=== PATIENT | male | born 1990 | race Caucasian/White ===

== ENCOUNTER 2022-09-05 19:00 | Inpatient (IN) | payer SELFPAY ==
[2022-09-05 18:53] VITALS: BMI 21.3
--- NOTE | 2022-09-05 18:55 | HP.PCM.HOS_ITS ---
HPI - General General Date of Admission: 09/05/22 Date of Service: 09/05/22 Chief Complaint: ? Cellulitis HPI Narrative The patient is a 31 y/o M w/ PMHx: Tobacco use, Cannabis use, Hyperthyroidism untreated who presents to the [facility] as a direct transfer from [facility] on 09/05/22 with history of several months of intermittent episodes of redness and mild edema to the R foot/ankle in addition to onset of tenderness and redness that blanches to touch on the left upper anterior thigh and groin regimen with no specific injury or wound, noted to ofte leni and then return, most recently recurred ~ 2-3 weeks prior reporting at least over this course of time it has been ongoing 3 rounds of abx therapy but in the last 24 hours he noted onset of fever and chills but no nausea, emesis, diarrhea. He does admit to some mild abdominal cramping intermittently but no severe pain, rebound or guarding. He does report having been bit on the left buttock region by a tick ~ 3-4 months prior or perhaps a bit longer he notes and ended up having a concurrent cellulitis and possible abscess from description and was treated with unclear abx therapy but unclear course but did not have any lyme disease testing or assessment per his report. He does have joint discomfort but not severe. He denies having ever noted the bull's-eye rash pattern on the buttock region but he could not see the region himself he notes. He of note states he did take m ethimazole prior and did have difficulty with the medication, noting very sluggish, lethargic side effects and did eventually have the dose decreased but is willing to start again with a low dose and assess if he has the same reaction. Work-up at the outside facility included heart rate 110, BP 139/89, under percent oxygenation on room air, CBC with WBC 14.0, hemoglobin 16, platelet 342 with unclear shift, TSH less than 0.1, free T42.2, chest x-ray with no acute cardiopulmonary findings, CRP 5, BMP with sodium 140, potassium 4, BUN/creatinine 7/0.7, glucose 81 and also of note because patient had mild abdominal cramping they did obtain a CT abdomen and pelvis which demonstrated some mild thickness of the small bowel nonspecific as well as mild mesenteric edema. [facility] Medical History Cannabis use disorder Hyperthyroidism Tobacco use Home Medications NK 09/05/22 [History Last Taken Unknown] Allergy/AdvReac Type Severity Reaction Status Date / Time No Known Allergies Allergy Verified 09/05/22 19:06 Family History (Updated 09/05/22 @ 19:[address] Emmy Pryor MD) Mother Diabetes Hypertension Hyperlipidemia Family History other other (Patient denies any marked paternal family history including HD, DM, CA but does not know his father well.) Surgical History (Updated 09/05/22 @ 19:[address] Emmy Pryor MD) History of mandibular surgery Social History (Updated 09/05/22 @ 19:[address] Emmy Pryor MD) household members: family Smoking Status: Current every day smoker tobacco type: cigarettes Smoking packs per day: 2 Smoking cigarettes per day: 40.0 alcohol intake: never substance use type: marijuana ROS ROS Narrative Admission Review of Systems: CONSTITUTIONAL: No weight loss, + fever, chills, weakness or fatigue. HEENT: Eyes: No visual loss, blurred vision, double vision or yellow sclerae. Ears, Nose, Throat: No hearing loss, sneezing, congestion, runny nose or sore throat. SKIN: + Intermittent regions of erythema currently to the right medial ankle and left upper thigh and groin region. CARDIOVASCULAR: No chest pain, chest pressure or chest discomfort, palpitations, edema, orthopnea, syncopal events. RESPIRATORY: No shortness of breath, cough or sputum, wheezing, hemoptysis. GASTROINTESTINAL: + Mild abdominal cramping. No anorexia, nausea, vomiting or diarrhea, melena, BRBPR. GENITOURINARY: No dysuria, frequency, urgency or retention. NEUROLOGICAL: No headache, dizziness, syncope, paralysis, ataxia, numbness or tingling in the extremities, focal weakness, change in bowel or bladder control, seizure. MUSCULOSKELETAL: + muscle, back pain, joint pain or stiffness. HEMATOLOGIC: No anemia, bleeding or bruising. LYMPHATICS: No enlarged nodes. No history of splenectomy. PSYCHIATRIC: No history of depression or anxiety. ENDOCRINOLOGIC: + reports of sweating, cold or heat intolerance. No polyuria or polydipsia. ALLERGIES: No history of asthma, hives, eczema or rhinitis. Physical Exam Narrative Physical Examination: General: Awake, alert, oriented x 3 and cooperative, seated upright in medical surgical bed in no apparent distress. Skin: Normal color, normal turgor, no icterus, no cyanosis except for noted very minimal redness which is blanching to the right medial ankle and very minimal edema associated as well as redness which is also blanching and stereotactic to the left upper thigh and groin region with no evidence of any abrasions or cuts. HEENT: AT/NC, EOMI, PERRLA, MMM, no carotid bruits or JVD noted. Lungs: CTA bilaterally, moderate effort, mild decrease BL bases, no rales, ronchi or wheezing. Heart: Mildly tachycardic with regular rhythm; no gallop, rub audible. Abdomen: Soft, NTTP, ND, mildly hyperactive BS, no HSM. Extremities: No cyanosis, no clubbing, very minimal ankle nonpitting edema. Neurological: Patient awake, alert, oriented as noted, cognitive function intact; pupils equally reactive to light and accommodation, cranial nerves II- XII grossly normal, moving all 4 extremities, no focal deficits, strength mildly global decreased. Psychiatric: Affect appears fatigued otherwise normal, no acute evidence of depressive or anxiety feelings. Assessment & Plan Assessment/Plan (1) Hyperthyroidism: PLAN: Plan The patient is a 31 y/o M w/ PMHx: Tobacco use, Cannabis use, Hyperthyroidism untreated who presents to the [facility] as a direct transfer from [facility] on 09/05/22 with history of several months of intermittent episodes of redness and mild edema to the R foot/ankle in addition to onset of tenderness and redness that blanches to touch on the left upper anterior thigh and groin regimen with no specific injury or wound, noted to ofte leni and then return, most recently recurred ~ 2-3 weeks prior reporting at least over this course of time it has been ongoing 3 rounds of abx therapy but in the last 24 hours he noted onset of fever and chills but no nausea, emesis, diarrhea. He does admit to some mild abdominal cramping intermittently but no severe pain, rebound or guarding. He does report having been bit on the left buttock region by a tick ~ 3-4 months prior or perhaps a bit longer he notes and ended up having a concurrent cellulitis and possible abscess from description and was treated with unclear abx therapy but unclear course but did not have any lyme disease testing or assessment per his report. #1. Recurrent blanching red rashes/Possible Erythema migrans, currently on R inner ankle and L upper thigh/groin region, suspect Lyme disease as opposed to Recurrent Acute Cellulitis which would have failed outpatient abx therapies: Will admit to [facility], will obtain lyme testing with WB, will for now place on IV rocephin as this would treat a bacterial etiology and lyme also initially but once appropriate would be more cost effective and beneficial to transition the patient to oral doxycycline 100 mg twice daily, CRP was obtained at outside facility but will also add ESR and procalcitonin, trend CBC, monitor redness to these regions and low threshold to involve infectious disease pending results. Pending results if Lyme disease is not evident and certainly low threshold to duplex his lower extremities to assure no DVT involvement if truly a cellulitic presentation. #2. Hypothyroidism, untreated: Patient with very mild tachycardia but unfortunately has been off treatments because of lack of insurance for many years, ED as well as Dr. Vu discussed patient care with Dr. Newton who will plan to see the patient on 09/07/2022 and at this time requested that he be initiated on methimazole 10 mg once daily but from discussions this may end up needing to be decreased or an alternate regimen pursued as it was very difficult in the past for him to tolerate this medication. At outside facility TSH less than 0.1 and free T4 2.2. #3. Tobacco Abuse: Encouraged cessation, inpatient consultation per RT, NR if desired. #4. Cannabis chronic usage: Patient normally uses smoked cannabis daily, UDS has been requested. #5. DVT prophylaxis: We will maintain on therapeutic Lovenox however if consistent with Lyme disease will de-escalate. If Lyme disease ruled out then certainly as noted duplex could be obtained and may discontinue Lovenox if appropriate following that study. Admission Evaluation Time spent evaluating chart, patient history, patient evaluation, care planning and discussion with specialists: 60 minutes. Charges/Coding Visit Charges Inpatient E&M: 34318 Init Hosp L2
[2022-09-05 19:53] VITALS: BP 138/86; PULSE 106; RESP 18; TEMP 36.8; O2SAT 100
[2022-09-05 19:58] VITALS: PULSE 106
[2022-09-05] MEDS: Acetaminophen 325 MG Tablet 650 MG PO (20:16)
[2022-09-05] MEDS: 0.9% Normal Saline 1,000 ML 100 ML IV (20:17)
[2022-09-05] MEDS: methIMAzole 10 MG TABLET PO (20:18)
[2022-09-05] MEDS: Enoxaparin 80 MG/0.8 ML Syringe 70 MG SC (20:18)
[2022-09-05 20:29] LABS: Erythrocyte Sedimentation Rate 16 mm/hr (0-20)
[2022-09-05 20:53] LABS: Procalcitonin < 0.01 ng/mL (0.00-0.09)
[2022-09-05 22:03] LABS: Vista UDS pH Range 7
[2022-09-05 22:05] LABS: Amphetamine Urine VISTA NEGATIVE (<1000 ng/mL); Barbiturate Urine VISTA NEGATIVE (< 200 ng/mL); Benzodiazepine Urine VISTA NEGATIVE (< 200 ng/mL); Cocaine Urine VISTA NEGATIVE (< 300 ng/mL); Ecstacy Urine VISTA NEGATIVE (< 500 ng/mL); Methadone Urine VISTA NEGATIVE (< 300 ng/mL); PCP Urine VISTA NEGATIVE (< 25 ng/mL); THC Urine VISTA POSITIVE (< 50 ng/mL)
[2022-09-05] MEDS: Ceftriaxone 1 GM/50 ML BAG IV (22:46)
--- NOTE | 2022-09-05 22:53 | NURSING ---
Pt was prescribed IV vancomycin. After around 500 Ml of infusion pt complained of his skin on the back of his neck and head feeling hot and itching. After I stopped the infusion he said it was subsiding.
[2022-09-05] MEDS: DiphenhydrAMINE 50 MG/ML Syringe 25 MG IV (23:34)
[2022-09-06] VITALS (7 sets, daily range): BP systolic 108–120; BP diastolic 62–88; PULSE 74–92; RESP 18; TEMP 36.6–36.8; O2SAT 95–100; BMI 21.3
[2022-09-06 06:08] LABS: Absolute Lymphocyte Count 2.44 X10^3/uL (0.83-4.51); Absolute Neutrophil Count 8.9 X10^3/uL (2.0-7.7); Basophil# 0.04 X10^3/uL; Basophil% 0.3 % (0-1); Eosinophil# 0.38 X10^3/uL; Hematocrit 44.7 % (40-54); Lymphocyte # 2.44 X10^3/ul (0.83-4.51); Lymphocyte % 19.6 % (19-41); Mean Corp Hgb Conc 33.6 g/dL (32-36); Mean Corpuscular Hgb 30.1 pg (27.0-32.0); Mean Corpuscular Volume 89.6 fL (80-94); Mean Platelet Vol. 10.1 fl (6.2-12.0); Monocyte# 0.65 X10^3/uL; Monocyte% 5.2 % (0-10); NRBC Flagged by Analyzer 0 % (0-5); Neutrophil # 8.86 X10^3/uL (2.7-7.7); Neutrophil % 71.1 % (47-70); Platelet Count 296 K/mm3 (150-450); RBC Distribution Width CV 12.1 % (11.6-14.6); RBC Distribution Width SD 39.7 fl (35.1-43.9); Red Blood Count 4.99 M/mm3 (4.6-6.2); White Blood Count 12.5 K/mm3 (4.4-11.0)
[2022-09-06 06:47] LABS: ALB/GLOB Ratio 0.7 RATIO (0.9-2.4); AST(SGOT) 13 U/L (15-37); Alanine Aminotransfer ALT/SGPT 15 U/L (16-61); Albumin, Serum 2.5 g/dL (3.2-5.0); Alkaline Phosphatase 137 U/L (45-117); Anion Gap 3 (5-15); BUN 6 mg/dL (7-18); BUN/Creat Ratio 8.6 RATIO (10-20); Calcium,Total 8.4 mg/dL (8.5-10.1); Chloride 110 mmol/L (98-107); EST Glomerular Filtration Rate 142 mL/min (>60); Est Glom Filt Rate - Afr Amer 172 mL/min (>60); Estimated Creatinine Clearance 157.25 ml/min; Globulin 3.6 g/dL (2.2-4.2); Glucose 88 mg/dL (74-106); Protein, Total 6.1 g/dL (6.4-8.2); Sodium Level 140 mmol/L (136-145)
--- NOTE | 2022-09-06 07:35 | PCM.PN.HOSP ---
Reason for Visit Reason for Visit: Diagnoses Thyrotoxicosis, unspecified without thyrotoxic crisis or storm (09/05/22) Subjective Subjective Follow-up for rash probably cellulitis and hypothyroidism Objective Data Objective Data Vital Signs: Vital Signs Temp Pulse Resp BP Pulse Ox O2 Del Method 98.2 F 92 18 119/62 99 Room Air 09/06/22 02:45 09/06/22 02:45 09/06/22 02:45 09/06/22 02:45 09/06/22 02:45 09/06/22 02:45 Oxygen Delivery Method Room Air Weight: 157 lb 6.561 oz Body Mass Index (BMI) 21.3 Intake & Output: Intake and Output for Last 24 Hours 09/04/22 09/05/22 09/06/22 23:59 23:59 23:59 Intake Total 585 / 585 700 / 700 Output Total 300 / 300 Balance 585 / 585 400 / 400 Lab / Micro Data 09/06/22 05:15 09/06/22 05:15 Labs: Laboratory Results - last 24 hr 09/05/22 19:55: ESR 16, C-React Prot Ext Range 42.90 H, Procalcitonin < 0.01 09/05/22 21:25: Urine Opiates Screen NEGATIVE, Urine Methadone Screen NEGATIVE, Ur Barbiturates Screen NEGATIVE, Ur Phencyclidine Scrn NEGATIVE, Ur Amphetamines Screen NEGATIVE, MDMA (Ecstasy) Screen NEGATIVE, U Benzodiazepines Scrn NEGATIVE, Urine Cocaine Screen NEGATIVE, U Cannabinoids Screen POSITIVE H, Ur Drug Screen Comment 09/06/22 05:15: WBC 12.5 H, RBC 4.99, Hgb 15.0, Hct 44.7, MCV 89.6, MCH 30.1, MCHC 33.6, RDW Std Deviation 39.7, RDW Coeff of [place] 12.1, Plt Count 296, MPV 10.1, Immature Gran % (Auto) 0.800, Neut % (Auto) 71.1 H, Lymph % (Auto) 19.6, [place] % (Auto) 5.2, Eos % (Auto) 3.0, Baso % (Auto) 0.3, Absolute Neuts (auto) 8.9 H, Absolute Lymphs (auto) 2.44, Nucleated RBC % 0, Sodium 140, Potassium 4.0, Chloride 110 H, Carbon Dioxide 27.0, Anion Gap 3 L, BUN 6 L, Creatinine 0.70, Estim Creat Clear Calc 157.25, Est GFR (MDRD) Af Amer 172, Est GFR (MDRD) Non-Af 142, BUN/Creatinine Ratio 8.6 L, Glucose 88, Calcium 8.4 L, Total Bilirubin 1.30 H, AST 13 L, ALT 15 L, Alkaline Phosphatase 137 H, Total Protein 6.1 L, Albumin 2.5 L, Globulin 3.6, Albumin/Globulin Ratio 0.7 L Physical Exam Narrative Seen and examined. History taken from the patient, patient's mother and grandmother near the bedside. Patient had rash after tick was found attached to his left buttock about 3 months ago. That rash was erythematous and grew bigger involve the buttock area in both groins. This resolved. About 3 weeks ago, patient had rash over left anterolateral thigh which is started as a small spot and grew bigger and bigger. At the same time he also had rash on the right foot and leg and has right knee swelling. He is admitted from pulmonary in ER with left thigh rash and right leg rash but that rash has resolved after 1 day of IV antibiotic ceftriaxone. Rash blanches on touch. No fever. Patient had 3 rounds of antibiotic in the last 3 weeks. Patient also had some mild nausea and abdominal crampings and CT abdomen was done there which shows mild small bowel wall thickening/edema Patient also has hypothyroidism diagnosed about 2 years but not taking medication. Denies gritty/sulema sensation or dry eyes. Wears corrective glasses since age of 17. As per mother patient did not had symptoms of hyperthyroidism as acute like hyperactive restlessness/fidgety Currently, patient does not have GI symptoms. Physical exam General: Alert, Oriented x3, Cooperative HEENT: Wears glasses. Atraumatic, PERRLA, EOMI, Normocephalic Oral: No Gingival or Mucosal Lesions/ Ulcerations Neck: Bilateral thyroid lobes enlarged/thyromegaly. No palpable nodules. Lower border palpable just above the suprasternal notch on swallowing. Supple, No JVD, Negative Carotid Bruits Lungs: Air entry diminished in bilateral lung bases. No crepitation/rhonchi Cardiovascular: Regular rate, Regular Rhythm, Normal S1, Normal S2, No murmurs Abdomen: Bowel Sounds Present, Soft, Non Tender, Non-Distended : No renal angle tenderness. No suprapubic tenderness. Extremities: No edema, Capillary Refill Less than 3 Seconds Skin: Erythematous rash over left thigh and right foot and ankle has resolved. A small erythematous nodule persist over left thigh from where rash started. Bilateral multiple inguinal lymphadenopathy left worse than right. Musculoskeletal: No Tenderness to Palpation of Joints or Extremities Neurological: Cranial nerves II-XII grossly intact, DTR 2+/4 and Symmetrical, Neuro grossly intact Psych/Mental Status: Normal Affect, Appropriate. Assessment & Plan Assessment/Plan (1) Hyperthyroidism: PLAN: Plan The patient is a 31 y/o M is admitted with intermittent fleeting rash currently for last 3 weeks but had tick bite/attachment and erythematous rash on left buttock cheek and groin area about 3 months ago. Patient also has swollen inguinal lymph nodes. #1. Recurrent blanching erythematous rash suspicious for erythema migrans/Lyme's disease: Patient is being admitted on [facility] floor, to detect transfer from [facility] ED on 09/05/2022. Left thigh rash at foot ankle rash has resolved very quickly after overnight 1 dose of IV ceftriaxone. Lyme disease antibiotic daughter ordered. We will request ID consult for opinion and recommendation. Patient also had right knee swelling and bilateral inguinal lymph node, more left inguinal lymphadenopathy. Patient has migratory/fleeting erythematous suspicious for erythema migrans. Patient denies symptoms and signs of STI including genital ulcer/discharge or ulcer over genital region. Not sexually active for last 3 months, single partner therefore DGI less likely. Procalcitonin less than 0.01. CRP elevated. Mild leukocytosis, improving. Continue IV ceftriaxone. Bilateral venous duplex ordered although DVT seems very less likely. No calf or thigh muscle swelling. #2. Untreated hyperthyroidism with thyromegaly: Patient was diagnosed hypothyroidism about 3 years ago but not taking methimazole. Discussed with the nylon operator Dr. Newton on 09/05/2022 and started on methimazole 10 mg once daily after discussion. Endocrinology consult tomorrow AM. Patient has diffuse symmetrical thyromegaly without palpable nodules. Patient denies any particular eye symptoms including dryness, sulema sensation, eyelid retraction. No obvious proptosis but eye looks slightly bigger. Patient wears corrective glasses probably myopia, unclear whether it was related to hypothyroidism although he appears since age of 17. At outside facility, TSH less than 0.1 Free T42.2. #3. Tobacco Abuse: Encouraged cessation,. #4. Cannabis chronic usage: Patient normally uses smoked cannabis daily. Urine tox positive of cannabinoids #5. DVT prophylaxis: I think patient does not clinically have signs and symptoms of DVT. Does not have family history of hyper global disorder. We will maintain Lovenox DVT dose 40 mg subcu daily . Charges/Coding Visit Charges Inpatient E&M: 10577 Subs Hosp L2
[2022-09-06] MEDS: methIMAzole 10 MG TABLET PO (09:59)
[2022-09-06] MEDS: Enoxaparin 80 MG/0.8 ML Syringe 70 MG SC (09:59)
[2022-09-06 14:31] LABS: M R Staph aureus DNA By PCR Negative (Negative); Probe Check PASS; Specimen Processing Control PASS
[2022-09-06] MEDS: Acetaminophen 325 MG Tablet 650 MG PO (20:08)
[2022-09-06] MEDS: Ceftriaxone 1 GM/50 ML BAG IV (22:15)
[2022-09-07 02:20] VITALS: BP 105/59; PULSE 72; RESP 16; TEMP 36.6; O2SAT 97
--- NOTE | 2022-09-07 05:55 | VDLE_ITS ---
Reason For Study: Bilateral leg swelling RIGHT LEFT GSV is normal. GSV is normal. CFV is compressible, spontaneous, phasic, CFV is compressible, spontaneous, phasic, competent and demonstrates normal competent, and demonstrates normal augmentation. augmentation. FV is compressible, spontaneous, phasic, FV is compressible, spontaneous, phasic, competent and demonstrates normal competent and demonstrates normal augmentation. augmentation. POP V is compressible, spontaneous, phasic, POP V is compressible, spontaneous, phasic, competent and demonstrates normal competent and demonstrates normal augmentation. augmentation. T/P Trunk is compressible. T/P Trunk is compressible. PTV is compressible. PTV is compressible. RT PerV is compressible. LT PerV is compressible. Procedure Structure noted in left groin that measures This is a venous duplex using B-mode, color 1.02 x 1.93 cm. flow and spectral Doppler. Exam performed portable in patient room. A preliminary report was called and/or faxed to pipe organ mechanic apprentice. VL/Venous Duplex US - [place] Extrem Interpretation Summary No evidence for acute deep venous thrombosis bilateral lower extremities with p atent and compressible bilateral great saphenous veins. Left groin 1.02 x 1.93 cm structu re based upon location consistent with a lymph node. Clinical correlation would be appropriat e. Ordering Physician: Siddharth Xie Referring Physician: Jackie Durant M.D. Performed By: Farzana Stout RVT
[2022-09-07 06:00] VITALS: BMI 20.6
[2022-09-07 07:05] VITALS: O2SAT 96
[2022-09-07 07:45] VITALS: BP 123/71; PULSE 65; RESP 16; TEMP 36.4; O2SAT 100
[2022-09-07] MEDS: methIMAzole 10 MG TABLET PO (10:05)
[2022-09-07] MEDS: Enoxaparin 40 MG/0.4 ML Syringe SC (10:05)
--- NOTE | 2022-09-07 10:28 | CASEMGMT ---
Addendum entered by Temi Clancy 09/07/22 15:23: TC to [facility] pharmacy, pt med cost is $48.08. ABEBA KRAMER into pt room, this is affordable to him. Pt denies further homegoing needs. Original Note: ABEBA KRAMER Assessment: Face to Face with pt for initial transition planning/care coordination assessment. ABEBA KRAMER introduced self and role at [facility], pt voices understanding and consents to assessment. Pt is A/O x4 and answers all questions appropriately at this time. Pt lying in bed in no distress. Care providers, pharmacy, and demographics verified/updated. Admitting Dx: cellulitis, hyperthyroidism PCP:Pt denies. Provided pt with a local healthcare directory pamphlet. Specialists:Pt denies. Preferred Pharmacy: [facility] Retail Insurance: Pt denies, pt reports he is self pay. Updated SW. Prescription Benefit: no LNOK: Maria De Jesus Duenas, grandmother Living Arrangements: Pt lives with mother in a two story home with 15 steps to enter with a rail. Pt reports he is I in ADL's and denies concerns at home. Transportation: Pt drives self and denies concerns with transportation. DME/HHC/SNF: Pt has crutches at home but does not use. Pt denies hx of HHC or SNF stays. Pt states no concerns with going home at time of dc. Pt states he is going to start taking his thyroid medicine as ordered. He reports finances are not a concern for obtaining the med. Will verify cost of all medications ordered at dc as pt does not have prescription coverage. Pt states no further concerns/needs. CM to follow. Advised pt to ask CM if any further question/concerns/needs arise, voices understanding. Pt Goal: Home Plan: Home
--- NOTE | 2022-09-07 12:19 | RAD_ITS ---
INDICATION: R heel and ball of foot pain on palpation EXAMINATION/TECHNIQUE: X-RAY - RIGHT XR Foot Min 3 Views 3 VIEWS COMPARISON: FINDINGS: SOFT TISSUES: No soft tissue swelling or gas. No radiopaque foreign body. BONES/JOINTS: No acute fracture or subluxation.. Normal alignment. Preservation of the joint space.. No sclerotic or destructive changes observed. RAD/Foot min 3 Views IMPRESSION: Negative. Electronically Signed: Stephen Damico, at 12:33 EDT ,
--- NOTE | 2022-09-07 14:23 | CON.PCM.ID_ITS ---
Assessment & Plan Assessment/Plan (1) Cellulitis: PLAN: Not clear if LLE cellulitis and joint pains are related to tick bite 3-4 months ago. Lyme pending. Has had rapid improvement with abx here. Likely Red Man syndrome with vanc, now on ceftriaxone. Plan for discharge would be 7 more days po doxy 100mg bid and keflex 500mg tid. Will follow as needed, thank you HPI Consult Data Date of Consult: 09/07/22 HPI Narrative Reason for Consultation: cellulitis HPI Narrative: VEDA MURRAY, is a 31 M who presented with several weeks L upper leg progressive redness, tender to touch. Had associated joint pains particularly in hips. Had tick bite on L upper leg about 3-4 months ago. No h/o bullseye rash. Had some associated fever with the tick bite. Came to ED here, given vanc, developed itching and flushing. Changed to ceftriaxone. Today feels much better, rash nearly resolved, joint pain nearly back to normal. Full ROS performed and neg except as noted above. PFSH Medical History Cannabis use disorder Hyperthyroidism Tobacco use Home Medications NK 09/05/22 [History Last Taken Unknown] Allergy/AdvReac Type Severity Reaction Status Date / Time vancomycin Allergy Intermediate Itching Verified 09/05/22 22:58 Family History Mother Diabetes Hypertension Hyperlipidemia Family History other Surgical History (Updated 09/05/22 @ 19:[address] Emmy Pryor MD) History of mandibular surgery Social History (Updated 09/05/22 @ 19:[address] Emmy Pryor MD) household members: family Smoking Status: Current every day smoker tobacco type: cigarettes Smoking packs per day: 2 Smoking cigarettes per day: 40.0 alcohol intake: never substance use type: marijuana Physical Exam Const alert, oriented x3 and no apparent distress General Appearance: cooperative HEENT normocephalic and head/scalp atraumatic Eyes PERRL and EOMs intact bilaterally Neck supple and No nodes Resp normal air movement and clear to auscultation bilaterally Cardio regular rate and regular rhythm GI soft to palpation, non-tender and non-distended Extremity General Extremity: Negative for edema Skin no rashes or lesions noted Neuro CN's II-XII intact bilaterally Lab / Micro Data Attestation: I reviewed the patient's lab results. 09/06/22 05:15 09/06/22 05:15 Labs: Laboratory Results - last 24 hr 09/06/22 12:00: MRSA (PCR) Negative Radiology Impression Venous Doppler Study 09/07/22 05:55 Interpretation Summary No evidence for acute deep venous thrombosis bilateral lower extremities with p atent and compressible bilateral great saphenous veins. Left groin 1.02 x 1.93 cm struct ure based upon location consistent with a lymph node. Clinical correlation would be appr opriate. Ordering Physician: Siddharth Xie Referring Physician: Jackie Durant M.D. Performed By: Farzana Stout RVT Foot X-Ray 09/07/22 12:19 IMPRESSION: Negative. Electronically Signed: Stephen Damico, at 12:33 EDT ,
--- NOTE | 2022-09-07 14:39 | CASEMGMT ---
Social Work SW met with pt and introduced self and role of SW. Pt is listed as no insurance. Pt confirms that he does work but does not have health insurance. Pt states he has applied for medicaid and is working on collecting and submitting needed documents to S. SW provided pt with prescription assistance, [id number] WHIRE card and People to people information. Pt denies any further needs or concerns at this time. TRISTEN Mc
--- NOTE | 2022-09-07 14:55 | DS.PCM_ITS ---
Providers Date of Admission: 09/05/22 Date of Discharge: 09/07/22 Primary Care Physician: Dr. Jackie Durant MD Consultations 09/05/22 18:55 Consult: Endocrinology Routine Consulting Provider: Elena Endocrinology Reason for Consult: Hyperthyroidism EMERGENT Consult: No Notified: Yes Date Notified: 09/05/22 Time Notified: 18:57 Method of Notification: Verbal 09/06/22 11:57 Consult: Infectious Disease Routine Consulting Provider: Raul Oliveira Reason for Consult: Migrating erthyematous rash, suspected Lyme Ds EMERGENT Consult: No Notified: Yes Date Notified: 09/06/22 Time Notified: 11:57 Method of Notification: Verbal Reason For Visit: CELLULITIS, HYPERTHYROIDISM Diagnosis Discharge Diagnosis (1) Cellulitis: Status: Acute Code(s): L03.90 - Cellulitis, unspecified Plan #Hyperthyroidism with thyromegaly #LLE cellulitis- outpt abx #Cannabis use Medications at Discharge Home Medications cephalexin 500 mg capsule 500 mg PO TID 7 days #21 caps 09/07/22 doxycycline hyclate 100 mg capsule 100 mg PO BID 7 days #14 caps 09/07/22 methimazole 10 mg tablet 10 mg PO DAILY 30 days #30 tabs 09/07/22 Hospital Course Summary of Care Provided Minutes Spent on Discharge: 32 Hospital Course: 31-year-old male history of tobacco use, cannabis use, hypothyroidism presently untreated presented to [facility] 09/05/2022 for several months of intermittent episodes of redness and mild edema to right ankle and foot in addition to left upper anterior thigh and groin with no noted injury or wound, had a tick bite several months ago and unclear if this correlated. At our facility had a white blood cell count of 12.5 and CRP of 42.9, he had a TSH at outlying facility of less than 0.1 and an elevated free T4. Endocrinology was contacted to start on methimazole and ID consulted due to clearing of Lyme disease and he was continued on Rocephin. He improved and reported he still has a little bit of soreness on the bottom of his right foot but x-ray negative with no more swelling or erythema and in his left anterior thigh swelling and erythema are much improved. He was evaluated by infectious disease who recommended doxycycline and Keflex for another 7 days. Discussed with endocrinology who recommended methimazole 10 mg on discharge and they will follow-up with him in the office in a month for further lab work and evaluation. Patient no other complaints on day of discharge. Discharge instructions as followed: -Please follow-up with Dr. Newton with endocrinology upon discharge. Her office will contact you to schedule hospital follow-up appointment to see her. If you do not hear from their office in 24 to 48 hours please call her office to inquire about scheduling -You will be discharged on new medication, methimazole, which is for your hyperthyroidism. You will take 10 mg daily, methimazole information to be prin mandy out with your discharge packet. Will be important to watch for fever, brown urine, or a bad/new skin rash. If he develops any of these please call the endocrinology office immediately -You will be discharged on 7 days of doxycycline 100 mg twice a day and Keflex 500 mg 3 times a day. All 3 prescriptions were sent to [facility] pharmacy -Your Lyme disease antibody panel was still pending at discharge, this can be followed up at hospital follow-up appointment or you can review the results through the [facility] patient portal when available -Please call your primary care provider's office upon discharge to schedule a hospital follow up within 1 week. -If you do not have a primary care physician of list of local primary care physicians can be provided for you upon discharge. Please ask for this list prior to discharge -For any concerning signs or symptoms please call 911 or proceed to the nearest emergency department Physical Exam Narrative General: Alert, oriented, no apparent distress HEENT: Atraumatic, normocephalic Eyes: Anicteric, normal conjunctiva, extraocular movements grossly intact Neck: Supple Respiratory: Clear to auscultation bilaterally, normal respiratory effort Cardiovascular: Regular rate and rhythm GI: Soft, nontender, nondistended Extremities: no right foot swelling, mildly tender diffusely around ball of foot Musculoskeletal: Moving all extremities Neuro: No overt focal neurological deficits Skin: Minimal erythema on the left upper thigh Psych: Cooperative Weight / BMI Weight Weight: 69.2 kg Body Mass Index (BMI) 20.6 ABG / Lab / Microbiology Data 09/06/22 05:15 09/06/22 05:15 Radiography Diagnostic Testing: Radiology Impression Venous Doppler Study 09/07/22 05:55 Interpretation Summary No evidence for acute deep venous thrombosis bilateral lower extremities with patent and compressible bilateral great saphenous veins. Left groin 1.02 x 1.93 cm structure based upon location consistent with a lymph node. Clinical correlation would be appropriate. Ordering Physician: Siddharth Xie Referring Physician: Jackie Durant M.D. Performed By: Farzana Stout, Kristel Foot X-Ray 09/07/22 12:19 IMPRESSION: Negative. Electronically Signed: Stephen Damico, at 12:33 EDT Reading Location ID and State: [address] [place] [address] Tel , Service support , D/C Instructions Discharge Diet: No restrictions Meaningful Use Info Meaningful Use Diagnoses (Choose all that apply): None applicable Discharge Plan Admission Admit Date/Time: 09/05/22 19:00 Primary Reason for Your Visit: Leg rash Attending Provider: Tara Lorenzo Primary Care Provider: Jackie Durant Consulting Providers: Tj Newton; Idania Quinones; Raul Oliveira; Siddharth Xie Instructions Patient Instructions: Methimazole Oral Tablet, ED Hyperthyroidism Additional Instructions / Restrictions: DISCHARGE INSTRUCTIONS PLEASE READ *Please take this with you to your next doctors appointment* -Please follow-up with Dr. Newton with endocrinology upon discharge. Her office will contact you to schedule hospital follow-up appointment to see her. If you do not hear from their office in 24 to 48 hours please call her office to in quire about scheduling -You will be discharged on new medication, methimazole, which is for your hy perthyroidism. You will take 10 mg daily, methimazole information to be printed out with your discharge packet. Will be important to watch for fever, brown urine, or a bad/new skin rash. If he develops any of these please call the endocrinology office immediately -You will be discharged on 7 days of doxycycline 100 mg twice a day and Keflex 500 mg 3 times a day. All 3 prescriptions were sent to [facility] pharmacy -Your Lyme disease antibody panel was still pending at discharge, this can be followed up at hospital follow-up appointment or you can review the results through the [facility] patient portal when available -Please call your primary care provider's office upon discharge to schedule a hospital follow up within 1 week. -If you do not have a primary care physician of list of local primary care physicians can be provided for you upon discharge. Please ask for this list prior to discharge -For any concerning signs or symptoms please call 911 or proceed to the nearest emergency department Discharge Orders/Prescriptions Prescriptions: New methimazole 10 mg Tablet 10 mg PO DAILY 30 Days Qty: 30 0RF cephalexin 500 mg capsule 500 mg PO TID 7 Days Qty: 21 0RF doxycycline hyclate 100 mg capsule 100 mg PO BID 7 Days Qty: 14 0RF Referrals / Follow Up: Jackie Durant MD [Primary Care Provider] - Tj Newton MD [Med Staff - Courtesy Staff] - Within 1 Month Disposition Disposition (needs filled in before D/C Order can be placed): Home, Self Care Charges/Coding Visit Charges Inpatient E&M: 61424 Disch Hosp >30min
--- NOTE | 2022-09-07 15:26 | PHA.DC.MC.R ---
Pharmacy [facility] has performed discharge medication reconciliation and counseling for this patient. Patient requested meds to beds, this [facility] called retail and requested delivery. 1. METHIMAZOLE 10MG PO DAILY 2. CEPHALEXIN 500MG PO TID X 7 DAYS 3. DOXYCYCLINE 100MG PO BID X 7 DAYS The patient's discharge medication list was reviewed for discrepancies and discrepancies were resolved. The patient was counseled on the following discharge medications and changes in medications for homegoing were reviewed. The Reason for Use, instructions for use, and potential side effects were reviewed for all new medications. The patient's questions regarding all of their medications were answered. The patient was able to verbally demonstrate an understanding of their discharge medications. Patient counseled by closing managerAnthony. Medications at Discharge Home Medications cephalexin 500 mg capsule 500 mg PO TID 7 days #21 caps 09/07/22 doxycycline hyclate 100 mg capsule 100 mg PO BID 7 days #14 caps 09/07/22 methimazole 10 mg tablet 10 mg PO DAILY 30 days #30 tabs 09/07/22
== END 2022-09-07 16:25 | disposition home or self-care (01) | DRG 603 ==
PROVIDERS: Family Medicine; Admitting Provider Internal Medicine; PCP Family Medicine; Visit Provider Internal Medicine
DX: L03.116 Cellulitis of left lower limb (principal); A69.20 Lyme disease, unspecified; E03.9 Hypothyroidism, unspecified; E05.90 Thyrotoxicosis, unspecified without thyrotoxic crisis or storm; F17.210 Nicotine dependence, cigarettes, uncomplicated; F12.90 Cannabis use, unspecified, uncomplicated; Z79.2 Long term (current) use of antibiotics; Z59.7 Insufficient social insurance and welfare support
CPT/HCPCS: 36415; 73630; 80053; 80307; 84145; 85025; 85652; 86140; 86618; 87641; 93970; 94668; J7030; J7040